=== PATIENT | male | born 1940 | race Caucasian/White ===

== ENCOUNTER → 2017-04-13 | Outpatient (CLI) | payer OTHER ==
[~2017-04-13] MED LIST: ADVAIR 250-501 EAC1 IH; ADVAIR 2501 DISK W/D; ALBUTEROL MININEB NEB; ALBUTEROL17 GM; ALBUTEROL17 GM INH; ASPIRIN; ASPIRIN81 MG PO; AVAPRO; DICLOFENAC PO; DOXYCYCLINE PO; LEVAQUIN; LISINOPRIL-HCTZ1 T15 PO; MEDROL PO; MEDROL4 MG/DOSE- PO; MUCINEX DM1 TAB.SR . PO; MULTI-VITAMIN1 TAB; PRAVASTATIN SOD40 MG PO; PREDNISONE; PREDNISONE10 MG PO; PRIMATINE MIST; PROAIR INH; ZESTORETIC 20/21 TAB PO; ZETIA PO; ZITHROMAX PO
--- NOTE | ~2017-04-13 | CT55 ---
[facility] A Service of [facility] & [facility] RADIOLOGY TEXT RESULTS PATIENT: [facility]ACH[facility] BRITTON [facility] UN[facility] #: [id number] AGE: [address]: Jose Angel Frey MD SEX: M ORDER DR: [id number] [facility] [address] [place], [place] [address] [id number] O MR#: [id number] [facility] #: [id number] NAME: LACHO BRITTON. : 1940 SEX: M STUDY DATE/TIME: 04/13/2017 15:39 UNIT: [facility] ROOM: STUDY DESCRIPTION: CT Chest W Con Attending Physician: Jose Angel Frey M.D. Referring Physician: Jose Angel Frey M.D. Ordering Physician: Jose Angel Frey M.D. Primary Care Physician: Mario Mayer M.D. MEDICAL IMAGING REPORT This report is preliminary unless electronic signature is present EXAM CT of the chest with contrast INDICATIONS Abnormal chest x-ray. Shortness of breath off and on for 2-[address] scan of the chest was performed following the administration of IV contrast. Coronal and sagittal reformatted images were obtained. This CT exam was performed with one or more of the following radiation dose reduction techniques: Automatic exposure control, adjustment of mA and/or kV according to patient size, and iterative reconstruction. FINDINGS There is no suspicious lymphadenopathy. There are calcified mediastinal and hilar lymph nodes. No pleural effusion. There are tiny calcified granulomas in the lungs. There is some minimal linear scarring or atelectasis in the base of the left lower lobe. Limited imaging in the upper abdomen is unremarkable. Bone windows are unremarkable. IMPRESSION Minimal linear scarring or atelectasis within the base of the left lower lobe. No suspicious pulmonary nodule or airspace consolidation. Dictated by... Andrea Marin M.D. THIS IS AN ELECTRONICALLY VERIFIED REPORT Andrea Marin M.D. at 04/14/2017 7:10 AM ARS/hermila TD: 04/14/2017 02:21 [facility] A Service of [facility] & [facility] RADIOLOGY TEXT RESULTS PATIENT: LACHO BRITTON LOCATION: [facility] : 42 UNIT #: [id number] AGE: [address]: Jose Angel Frey MD SEX: M ORDER DR: JOB #: [id number] MEDICAL IMAGING REPORT Page 1 of 1 COPY
[2017-04-13 16:56] LABS: POC - CREATININE 1.09 mg/dL (0.64-1.27); POC - GFR >60.0 mL/min (>60)
== END | disposition home or self-care (01) ==
LOC: CCAT 14:35
PROVIDERS: Internal Medicine
DX: R93.8 Abnormal findings on diagnostic imaging of other specified body structures (principal)
CPT/HCPCS: 71260; 82565; Q9967